=== PATIENT | female | born 1995 | race Caucasian/White ===

== ENCOUNTER 2016-08-18 23:17 | Emergency (ER) | payer SELFPAY ==
[~2016-08-18] VITALS: Ht 157.5 cm; Wt 81.6 kg
[2016-08-19] MEDS ORDERED: FENTANYL PF 100 MCG/2 ML VIAL. IV ONE (00:30)
[2016-08-19] MEDS ORDERED: ONDANSETRON PF 4 MG/2 ML VIAL. IV ONE (00:30)
[2016-08-19] MEDS ORDERED: IV NORMAL SALINE 1000ML BAG 1,000 ML IV ONE (00:30)
[2016-08-19] MEDS ORDERED: IOHEXOL 300 MG/ML 100ML VIAL. IV ONE (00:45)
[2016-08-19] MEDS ORDERED: CONTRAST GIVEN MC PRN (00:45)
[2016-08-19 00:48] LABS: BASO % 0 % (0-3); EOS % 1 % (0-3); HEMATOCRIT 41.2 % (36.0-47.0); HEMOGLOBIN 13.3 g/dL (12.0-15.5); LYMPH # 1.7 x10^3/uL (1.0-4.8); LYMPH % 15 % (24-48); MEAN CORPUSCULAR HEMOGLOBIN 27 pg (25-35); MEAN CORPUSCULAR HGB CONC 32 g/dL (31-37); MEAN CORPUSCULAR VOLUME 84 fL (79-100); MONO % 7 % (0-9); NEUT % 77 % (31-73); PLATELET COUNT 413 x10^3/uL (140-400); RED BLOOD COUNT 4.88 x10^6/uL (3.50-5.40); RED CELL DISTRIBUTION WIDTH 15.8 % (11.5-14.5); WHITE BLOOD COUNT 11.7 x10^3/uL (4.0-11.0)
[2016-08-19 00:59] LABS: CALCIUM 8.5 mg/dL (8.5-10.1); CREATININE 0.8 mg/dL (0.6-1.0); GFR 90.5; POTASSIUM 3.6 mmol/L (3.5-5.1)
[2016-08-19 01:37] LABS: NEG OBC UR NEG; POS OBC UR POS
--- NOTE | 2016-08-19 01:59 | RAD ---
PROCEDURE Abdomen pelvis CT with intravenous contrast. HISTORY Pain. TECHNIQUE Computed tomographic images of the abdomen and pelvis were obtained following the intravenous administration of 75 cc Omnipaque 300 intravenous contrast. One or more of the following individualized dose reduction techniques were utilized for this examination: 1. Automated exposure control; 2. Adjustment of the mA and/or kV according to patient size; 3. Use of iterative reconstruction technique. COMPARISON None. FINDINGS Evaluation of the lower thorax is unremarkable. No hepatic lesion is seen. The gallbladder, pancreas, spleen, adrenal glands and kidneys are unremarkable. The appendix is unremarkable. No abnormally thickened or dilated loop of bowel is seen. The bladder, uterus and ovaries are unremarkable. There are multiple prominent lymph nodes throughout the root of the mesenteric. There is no suspicious osseous lesion. IMPRESSION 1. Prominent mesenteric lymph nodes, within physiologic limits for a patient of this age. The possibility of mesenteric adenitis can be considered in the appropriate clinical setting. 2. Otherwise, relatively unremarkable abdomen and pelvis CT. Electronically signed by: Taryn Painting (Aug 19, 2016 01:57:38)
[2016-08-19 02:09] VITALS: BP 121/59
[2016-08-19] MEDS ORDERED: ONDA4TAB7 PO (02:11)
[2016-08-19] MEDS ORDERED: IBUP-1060 PO (02:11)
--- NOTE | 2016-08-19 02:11 | PHYS DOC ---
Past Medical History Past Medical History: Schizophrenia Additional Past Medical Histor: PTSD Past Surgical History: No Surgical History Alcohol Use: Occasionally Drug Use: Marijuana Adult General Chief Complaint Chief Complaint: ABDOMINAL PAIN HPI HPI 21-year-old female who presents with significant generalized abdominal pain and diarrheal symptoms. Patient additionally states she has some nausea and vomiting as well. She states her symptoms worsen over the last several days. She has subjective fever and chills. Patient does have a tremor at baseline. She denies any specific health problems. Review of Systems Review of Systems Constitutional: Denies fever or chills [] Eyes: Denies change in visual acuity, redness, or eye pain [] HENT: Denies nasal congestion or sore throat [] Respiratory: Denies cough or shortness of breath [] Cardiovascular: No additional information not addressed in HPI [] GI: Has abdominal pain, has nausea, has vomiting, denies bloody stools, denies diarrhea [] : Denies dysuria or hematuria [] Musculoskeletal: Denies back pain or joint pain [] Integument: Denies rash or skin lesions [] Neurologic: Denies headache, focal weakness or sensory changes [] Endocrine: Denies polyuria or polydipsia [] Current Medications Current Medications Current Medications Medications (Trade) Dose Ordered Sig/[facility] Start Time Stop Time Status Last Admin Dose Admin Fentanyl Citrate (Fentanyl 2ml Vial) 50 mcg 1X ONCE 08/19/16 00:30 08/19/16 00:31 DC 08/19/16 00:45 50 MCG Info (Do NOT chart on this entry -- for MONITORING) 1 each PRN DAILY PRN 08/19/16 00:45 08/19/16 02:49 DC Iohexol (Omnipaque 300 Mg/ml) 75 ml 1X ONCE 08/19/16 00:45 08/19/16 00:46 DC 08/19/16 01:45 75 ML Ondansetron HCl 4 mg 4 mg 1X ONCE 08/19/16 00:30 08/19/16 00:31 DC 08/19/16 00:45 4 MG Sodium Chloride (Iv Sodium Chloride 0.9% 1000ml Bag) 1,000 ml @ 1,000 mls/hr 1X ONCE 08/19/16 00:30 08/19/16 01:29 DC 08/19/16 00:45 1,000 MLS/HR Allergies Allergies Allergies Coded Allergies Type Severity Reaction Last Updated Verified No Known Drug Allergies 08/19/16 No Physical Exam Physical Exam Constitutional: Well developed, well nourished, no acute distress, non-toxic appearance. [] HENT: Normocephalic, atraumatic, bilateral external ears normal, oropharynx moist, no oral exudates, nose normal. [] Eyes: PERRLA, EOMI, conjunctiva normal, no discharge. [] Neck: Normal range of motion, no tenderness, supple, no stridor. [] Cardiovascular:Heart rate regular rhythm, no murmur [] Lungs & Thorax: Bilateral breath sounds clear to auscultation [] Abdomen: Bowel sounds normal, soft, generalized abdominal tenderness, no masses , no pulsatile masses. [] Skin: Warm, dry, no erythema, no rash. [] Back: No tenderness, no CVA tenderness. [] Extremities: No tenderness, no cyanosis, no clubbing, ROM intact, no edema. [] Neurologic: Alert and oriented X 3, normal motor function, normal sensory function, no focal deficits noted. [] Psychologic: Affect normal, judgement normal, mood normal. [] Current Patient Data Vital Signs Vital Signs Date Time Temp Pulse Resp B/P Pulse Ox O2 Delivery O2 Flow Rate FiO2 08/19/16 02:09 98 18 121/59 97 Room Air 08/19/16 00:12 97.6 97.6 Lab Values Laboratory Tests Test 08/18/16 23:49 08/19/16 01:28 White Blood Count 11.7x10^3/uL (4.0-11.0) H Red Blood Count 4.88x10^6/uL (3.50-5.40) Hemoglobin 13.3g/dL (12.0-15.5) Hematocrit 41.2% (36.0-47.0) Mean Corpuscular Volume 84fL (79-100) Mean Corpuscular Hemoglobin 27pg (25-35) Mean Corpuscular Hemoglobin Concent 32g/dL (31-37) Red Cell Distribution Width 15.8% (11.5-14.5) H Platelet Count 413x10^3/uL (140-400) H Neutrophils (%) (Auto) 77% (31-73) H Lymphocytes (%) (Auto) 15% (24-48) L Monocytes (%) (Auto) 7% (0-9) Eosinophils (%) (Auto) 1% (0-3) Basophils (%) (Auto) 0% (0-3) Neutrophils # (Auto) 9.1x10^3uL (1.8-7.7) H Lymphocytes # (Auto) 1.7x10^3/uL (1.0-4.8) Monocytes # (Auto) 0.8x10^3/uL (0.0-1.1) Eosinophils # (Auto) 0.1x10^3/uL (0.0-0.7) Basophils # (Auto) 0.0x10^3/uL (0.0-0.2) Maternal Serum HCG Beta Subunit < 1mIU/mL (0-6) Sodium Level 141mmol/L (136-145) Potassium Level 3.6mmol/L (3.5-5.1) Chloride Level 103mmol/L (98-107) Carbon Dioxide Level 26mmol/L (21-32) Anion Gap 12 (6-14) Blood Urea Nitrogen 16mg/dL (7-20) Creatinine 0.8mg/dL (0.6-1.0) Estimated GFR (Cockcroft-Gault) 90.5 Glucose Level 88mg/dL (70-99) Calcium Level 8.5mg/dL (8.5-10.1) Lipase 125U/L (73-393) Urine Test Negative (NEG) Laboratory Tests 08/18/16 23:49 Laboratory Tests 08/18/16 23:49 EKG EKG [] Radiology/Procedures Radiology/Procedures CT of the abdomen pelvis with IV contrast: Evaluation of the lower thorax is unremarkable. No hepatic lesion is seen. The gallbladder, pancreas, spleen, adrenal glands and kidneys are unremarkable. The appendix is unremarkable. No abnormally thickened or dilated loop of bowel is seen. The bladder, uterus and ovaries are unremarkable. There are multiple prominent lymph nodes throughout the root of the mesenteric. There is no suspicious osseous lesion. Course & Med Decision Making Course & Med Decision Making Pertinent Labs and Imaging studies reviewed. (See chart for details) This is a 21-year-old female who has CT exam findings consistent with mesenteric adenitis. Her white count is consistent with this diagnosis there are no other acute abnormalities. Her pain was well-controlled in the department. I counseled the patient that she will follow up closely with her primary care doctor and to stay well-hydrated at home as her symptoms are likely self-limited without any need for medications Larry Disclaimer Larry Disclaimer This electronic medical record was generated, in whole or in part, using a voice recognition dictation system. Departure Departure Impression: Primary Impression: Mesenteric adenitis Additional Impression: Abdominal pain Disposition: HOME, SELF-CARE Admitting Physician: Other Condition: IMPROVED Referrals: UNKNOWN PCP NAME (PCP) Patient Instructions: Abdominal Pain, [id number], Mesenteric Adenitis Additional Instructions: Please continue to drink plenty of fluids for your illness. Take motrin for your pain and zofran as needed for your nausea. Return to the ER if you develop any worsening of your symptoms. Scripts Ondansetron Hcl (Zofran)4 Mg Tablet4 Mg PO BID PRN NAUSEA/VOMITING #14 TAB Prov:EUGENIA GARCIA DO 08/19/16 Ibuprofen 800 Mg Fjonpv130 Mg PO PRN Q6HRS PRN INFLAMMATION #20 TAB Prov:EUGENIA GARCIA DO 08/19/16 Problem Qualifiers EUGENIA GARCIA DO Aug 19, 2016 02:11
== END 2016-08-19 02:46 | disposition home or self-care (01) ==
LOC: ER 23:17
DX: I88.0 Nonspecific mesenteric lymphadenitis (principal); R50.9 Fever, unspecified; F20.9 Schizophrenia, unspecified; F43.10 Post-traumatic stress disorder, unspecified; F12.10 Cannabis abuse, uncomplicated
CPT/HCPCS: 36415; 74177; 80048; 81025; 83690; 84702; 85027; 96361; 96374; 96375; 99285; J2405; J3010; J7030; Q9967

== ENCOUNTER 2016-10-27 16:01 | Emergency (ER) | payer OTHER ==
[~2016-10-27] VITALS: Ht 154.9 cm; Wt 81.6 kg
[~2016-10-27 16:01] MED LIST: IBUP-1060 PO; ONDA4TAB7 PO
[2016-10-27] MEDS ORDERED: ALPRAZOLAM 0.5 MG TABLET PO ONE (17:15)
[2016-10-27 18:11] VITALS: BP 125/66
--- NOTE | 2016-10-27 18:27 | PHYS DOC ---
Past Medical History Past Medical History: Schizophrenia Additional Past Medical Histor: PTSD Past Surgical History: No Surgical History Alcohol Use: Occasionally Drug Use: None Adult General Chief Complaint Chief Complaint: CHEST WALL PAIN HPI HPI 21-year-old female presents with chest pain. She states she's had chest pain off and on for the last 10 years. She states is not particularly worse today but the pain lasted slightly longer than it typically does. She states at times it is worse with deep inspiration however today it was just a sharp right sided chest pain. She denies any shortness of breath or dyspnea on exertion. She denies any hemoptysis. She has not had any cough fever chills or sweats. [] Review of Systems Review of Systems Constitutional: Denies fever or chills [] Eyes: Denies change in visual acuity, redness, or eye pain [] HENT: Denies nasal congestion or sore throat [] Respiratory: Denies cough or shortness of breath [] Cardiovascular: No additional information not addressed in HPI [] GI: Denies abdominal pain, nausea, vomiting, bloody stools or diarrhea [] : Denies dysuria or hematuria [] Musculoskeletal: Denies back pain or joint pain [] Integument: Denies rash or skin lesions [] Neurologic: Denies headache, focal weakness or sensory changes [] Endocrine: Denies polyuria or polydipsia [] Current Medications Current Medications Current Medications Medications (Trade) Dose Ordered Sig/[facility] Start Time Stop Time Status Last Admin Dose Admin Alprazolam (Xanax) 1 mg ONCE ONCE 10/27/16 17:15 10/27/16 17:16 DC 10/27/16 17:19 1 MG Allergies Allergies Allergies Coded Allergies Type Severity Reaction Last Updated Verified No Known Drug Allergies 08/19/16 No Physical Exam Physical Exam Constitutional: Well developed, well nourished, no acute distress, non-toxic appearance. [] HENT: Normocephalic, atraumatic, bilateral external ears normal, oropharynx moist, no oral exudates, nose normal. [] Eyes: PERRLA, EOMI, conjunctiva normal, no discharge. [] Neck: Normal range of motion, no tenderness, supple, no stridor. [] Cardiovascular:Heart rate regular rhythm, no murmur [] Lungs & Thorax: Bilateral breath sounds clear to auscultation [] Abdomen: Bowel sounds normal, soft, no tenderness, no masses, no pulsatile masses. [] Skin: Warm, dry, no erythema, no rash. [] Back: No tenderness, no CVA tenderness. [] Extremities: No tenderness, no cyanosis, no clubbing, ROM intact, no edema. [] Neurologic: Alert and oriented X 3, normal motor function, normal sensory function, no focal deficits noted. [] Psychologic: Affect normal, judgement normal, mood normal. [] Current Patient Data Vital Signs Vital Signs Date Time Temp Pulse Resp B/P Pulse Ox O2 Delivery O2 Flow Rate FiO2 10/27/16 17:41 104 23 136/69 99 Room Air 10/27/16 16:20 97.6 97.6 Lab Values Laboratory Tests Test 10/27/16 16:01 POC Urine HCG, Qualitative Hcg negative (Negative) EKG EKG [EKG: Sinus tachycardia rate of [address]-T changes] Radiology/Procedures Radiology/Procedures [] Impressions: Chest x-ray: Negative exam as interpreted by me Course & Med Decision Making Course & Med Decision Making Pertinent Labs and Imaging studies reviewed. (See chart for details) [ED course: Evaluation reveals a 21-year-old very anxious female with chest pain. She was given a presumed Lyme during her stay in the department which did help alleviate her symptoms. Her chest x-ray and EKG were unremarkable. Patient is stable for discharge home at this time.] Dragon Disclaimer Dragon Disclaimer This electronic medical record was generated, in whole or in part, using a voice recognition dictation system. Departure Departure Impression: Primary Impression: Chest pain Additional Impression: Anxiety about health Referrals: UNKNOWN PCP NAME (PCP) Patient Instructions: Anxiety and Panic Attacks, Chest Pain (Nonspecific) Additional Instructions: Follow with your family doctor this week for recheck. Return to the emergency department with any new or concerning symptoms Problem Qualifiers Primary Impression: Chest pain Chest pain type: unspecified Qualified Code: R07.9 - Chest pain, unspecified ANTONETTE DOSS DO Oct 27, 2016 18:27
--- NOTE | 2016-10-28 06:07 | EKG ---
[facility] [address] [place] [address] Test Date: 2016-10-27 Test Time: 16:18:54 Pat Name: EMELINA SRINIVASAN Department: Room: Gender: F Pecan Sheller: : 1995 Requested By: ANTONETTE DOSS Order Number: [id number] Reading MD: Mimi Adam Measurements Intervals [place] Rate: 113 P: 14 WV: 128 QRS: 18 QRSD: 72 T: 25 QT: 314 QTc: 430 Interpretive Statements SINUS RHYTHM MISSING LEAD V 4. OTHERWISE NORMAL EKG. Electronically Signed On 10-29-2016 21:33:31 CDT by Mimi Adam
--- NOTE | 2016-10-28 08:53 | RAD ---
Portable chest, 10/27/2016: History: Chest pain The heart size and pulmonary vascularity are normal. No pulmonary infiltrates are seen. There is no evidence of pleural fluid. IMPRESSION: No acute cardiopulmonary abnormality is detected.
== END 2016-10-27 18:32 | disposition home or self-care (01) ==
LOC: ER 16:01
DX: R07.9 Chest pain, unspecified (principal); F41.9 Anxiety disorder, unspecified; F43.10 Post-traumatic stress disorder, unspecified
CPT/HCPCS: 71010; 81025; 93005; 99283-25